=== PATIENT | female | born 1995 | race Asian ===

== ENCOUNTER → 2017-01-17 | Outpatient (CLI) | payer OTHER ==
[~2017-01-17] MED LIST: BCPILLS PO; MULT1PAK6 PO; OPTIRAY 320 IV PRN; PHEN-876 PO; PRT/20 PO; SULF800T23 PO; ZOLP5TAB6 PO
--- NOTE | 2017-01-17 16:43 | DIAGNOSTIC IMAGING REPORT ---
ABDOMEN AND PELVIS CT WITH IV AND ORAL CONTRAST CT DOSE: 250.10 mGy.cm HISTORY: Recent weight loss. 15 pound weight loss in 3 weeks. X TECHNIQUE: Multiaxial CT images of the abdomen and pelvis were performed following the use of intravenous and oral contrast. A dose lowering technique was utilized adhering to the principles of ALARA. COMPARISON STUDY: None. FINDINGS: The lung bases are clear. The liver, spleen, gallbladder, pancreas, left kidney, and adrenal glands are within normal limits. No bowel wall thickening or obstruction. The pelvic organs are unremarkable. No suspicious lytic or blastic osseous lesions. 3 mm hypodense lesion within the right kidney is too small to stress but likely represents a cyst. There is a 4 mm soft tissue nodule within the left lower quadrant omentum seen on image 244. IMPRESSION: 1. No bowel wall thickening or obstruction. 2. No acute abnormality in the abdomen or pelvis. 3. A 4 mm soft tissue nodule within the left lower quadrant omentum. This is of doubtful clinical significance and favors a tortuous vessel or possibly represent a small focus of endometriosis in the appropriate clinical setting. A 3 month abdomen and pelvis CT follow up is recommended to ensure stability. Electronically signed by: Denilson Ledesma M.D. 01/17/2017 4:42 PM Dictated Date/Time: 01/17/2017 4:34 PM
== END | disposition home or self-care (01) ==
LOC: C.CTS 15:37
PROVIDERS: ATTEND Physician Assistant
DX: R63.4 Abnormal weight loss (principal)

== ENCOUNTER 2017-02-04 20:48 | Emergency (ER) | payer OTHER ==
[~2017-02-04] VITALS: Ht 157.5 cm; Wt 47.3 kg
[2017-02-04 21:07] VITALS: Ht 157.5 cm; Wt 47.3 kg
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
[2017-02-04 22:14] VITALS: BP 101/71; PULSE 79; TEMP 36.6; O2SAT 100
== END 2017-02-04 22:15 | disposition home or self-care (01) ==
LOC: C.EDB 20:49 → C.EDD 22:15
DX: J02.9 Acute pharyngitis, unspecified (principal); F31.9 Bipolar disorder, unspecified; F17.210 Nicotine dependence, cigarettes, uncomplicated; Z79.3 Long term (current) use of hormonal contraceptives; Z79.899 Other long term (current) drug therapy

== ENCOUNTER 2017-02-06 14:48 | Emergency (ER) | payer OTHER ==
[~2017-02-06] VITALS: Ht 157.5 cm; Wt 47.1 kg
[2017-02-06 15:04] VITALS: TEMP 36.5; Ht 157.5 cm; Wt 47.1 kg
[2017-02-06] MEDS ORDERED: PHENAZOPYRIDINE HCL 200 MG TAB PO STA (16:05)
[2017-02-06 17:21] LABS: URINE NITRITE POS (NEG); URINE SPECIFIC GRAVITY 1.027 (1.000-1.030); UROBILINOGEN NEG (NEG)
[2017-02-06 17:22] LABS: MANUAL MICROSCOPIC REQUIRED? NO; REVIEW REQ? YES; URINE APPEARANCE CLOUDY (CLEAR); URINE COLOR RED
[2017-02-06 17:28] LABS: URINE BILIRUBIN NEG (NEG)
[2017-02-06 17:33] LABS: URINE EPITHELIAL CELL AUTO 20-30 /lpf (0-5); ZZUR CULT IF INDIC CLEAN CATCH YES
[2017-02-06] MEDS ORDERED: PHEN-876 PO (17:48)
[2017-02-06] MEDS ORDERED: SULF800T23 PO (17:48)
[2017-02-06 17:49] VITALS: BP 116/81; PULSE 106; O2SAT 95
[2017-02-06] MEDS ORDERED: SULFAMETHOXAZOLE/TRIMETHOPRIM DS 800/160MG TAB PO STA (17:49)
[2017-02-06] MEDS ORDERED: MULT1PAK6 PO (21:49)
[2017-02-06] MEDS ORDERED: BCPILLS PO (21:49)
[2017-02-06] MEDS ORDERED: PRT/20 PO (21:49)
[2017-02-06] MEDS ORDERED: ZOLP5TAB6 PO (21:49)
--- NOTE | 2017-02-07 02:16 | EMERGENCY ROOM VISIT NOTE ---
History First contact with patient: 15:53 Chief Complaint: URINARY SYMPTOMS Stated Complaint: BLOOD IN URINE, ABDOMINAL PAIN Nursing Triage Summary: pt states "I am pissing blood" c/o R flank pain, R urethra pain and increased frequency in urination started about 2 hours ago History of Present Illness The patient is a 21 year old female who presents to the Emergency Room with complaints of blood in her urine, dysuria and increased frequency of urine that started approximately 2 hours ago. The patient reports that she was here yesterday and diagnosed with a viral upper respiratory infection. She has persistent cough, but denies any progressively worsening respiratory symptoms. The patient reports that she has had UTIs in the past, but reports that she has never had blood in her urine. Patient denies vaginal bleeding. She thought she may have been 2 weeks ago, and took vitamin C 2000 mg and drank a tea to "prevent the egg from settling." The patient denies any vaginal discharge, diarrhea or constipation. The pain is not radiating into the back. She denies any nausea or vomiting. She rates her urinary discomfort an 8 out of 10. Review of Systems 10 system review was performed and was negative except for pertinent positives and negatives as indicated in history of present illness Past Medical/Surgical History Medical Problems: (1) Bipolar 1 disorder Family History Unremarkable Social History Smoking Status: Current Every Day Smoker Alcohol Use: none Drug Use: other Marital Status: single Housing Status: lives alone Occupation Status: [employer] student Current/Historical Medications Scheduled Control Pills ( Control Pills), 1 TAB PO DAILY Pantoprazole (Protonix), 20 MG PO DAILY Phenazopyridine HCl (Pyridium), 200 MG PO TID Sulfa/Trimethoprim (Bactrim Ds 800MG/160MG), 1 TAB PO BID Scheduled PRN Multiple Vitamins W/ Minerals (Emergen-C Vitamin C), 1 PKT PO DAILY PRN for ILLNESS Zolpidem Tartrate (Zolpidem Tartrate), 5 MG PO HS PRN for Sleep Physical Exam Vital Signs Date Time Temp Pulse Resp B/P (MAP) Pulse Ox O2 Delivery O2 Flow Rate FiO2 02/06/17 17:49 106 18 116/81 95 Room Air 02/06/17 15:04 36.5 119 18 108/63 96 Room Air Physical Exam CONSTITUTIONAL: Healthy and well nourished. Alert and oriented X 3 with positive affect. HEENT: Normocephalic, atraumatic. Pupils equal, round and reactive. Scleral icterus or conjunctival injection. NECK: Full active range of motion without discomfort. RESPIRATORY: Clear to auscultation bilaterally with no wheezing, crackles, rhonchi or stridor. CARDIOVASCULAR: Regular rate and rhythm with no murmurs, rubs or gallops. GASTROINTESTINAL: Bowel sounds present in all quadrants. She has suprapubic tenderness to palpation. Negative McBurney's point tenderness. Negative CVA tenderness. No abdominal rigidity, guarding or rebound. MUSCULOSKELETAL: Full range of motion of all joints without discomfort. INTEGUMENTARY: No rash or other significant dermatologic conditions noted. NEUROLOGIC: No focal neurologic deficits noted. Medical Decision & Procedures Laboratory Results Test 02/06/17 16:48 Urine Color RED Urine Appearance CLOUDY (CLEAR) Urine pH 7.0 (4.5-7.5) Urine Specific [place] 1.027 (1.000-1.030) Urine Protein 4+ (NEG) Urine Glucose (UA) NEG (NEG) Urine Ketones NEG (NEG) Urine Occult Blood 3+ (NEG) Urine Nitrite POS (NEG) Urine Bilirubin NEG (NEG) Urine Urobilinogen NEG (NEG) Urine Leukocyte Esterase SMALL (NEG) Urine WBC (Auto) >30 /hpf (0-5) Urine RBC (Auto) >30 /hpf (0-4) Urine Hyaline Casts (Auto) 1-5 /lpf (0-5) Urine Epithelial Cells (Auto) 20-30 /lpf (0-5) Urine Bacteria (Auto) NEG (NEG) Urine Pathogenic Casts /lpf (0) Urine Test NEG (NEG) Urinalysis is consistent with infection. Urine is negative. Cultures are ordered and pending. Medications Administered Medications (Trade) Dose Ordered Sig/Filiberto Route Start Time Stop Time Status Last Admin Dose Admin Phenazopyridine HCl (Pyridium Tab) 200 mg NOW STAT PO 02/06/17 16:05 02/06/17 16:07 DC 02/06/17 16:42 200 MG Trimethoprim/ Sulfamethoxazole (Septra Ds 800/ 160MG Tab) 1 tab NOW STAT PO 02/06/17 17:49 02/06/17 17:50 DC 02/06/17 18:14 1 TAB ED Course Patient history and physical exam were performed. Nurse's notes were reviewed. Vital signs were reviewed and were normal. The patient is mild tachycardic at 119 bpm in triage. On my examination, pulse was 96. Urinalysis is consistent with UTI. Urine cultures were ordered and are pending. Urine was negative. The patient was dispensed Bactrim DS and Pyridium 200 mg while in the emergency department. She received prescriptions for both Bactrim DS and Pyridium. The patient was instructed to follow-up with her PCP as needed for further UTI management, or management of her upper respiratory infection. The patient was advised that her infection is still likely in the viral phase. She was instructed to return to the emergency department for any developing fever or other concerning symptoms. The patient was happy with plan of care, and voiced understanding of all discharge instructions. Medical Decision Medication Reconcilliation Current Medication List: was personally reviewed by oh Blood Pressure Screening Patient's blood pressure: Normal blood pressure Impression Primary Impression: Urinary tract infection Additional Impression: Upper respiratory infection, viral Departure Information Prescriptions Phenazopyridine HCl (Pyridium) 200 Mg Tab 200 MG PO TID for dysuria, #5 TAB Prov: Raudel Cm PA 02/06/17 Sulfa/Trimethoprim (Bactrim Ds 800MG/160MG) Tab 1 TAB PO BID for 5 Days, #10 TAB Prov: Raudel Cm PA 02/06/17 Referrals [facility] (PCP) Patient Instructions [facility] Problem Qualifiers Primary Impression: Urinary tract infection Urinary tract infection type: acute cystitis Hematuria presence: with hematuria Qualified Codes: N30.01 - Acute cystitis with hematuria
== END 2017-02-06 19:00 | disposition home or self-care (01) ==
LOC: C.EDB 15:06 → C.EDA 19:00
DX: N39.0 Urinary tract infection, site not specified (principal); F31.9 Bipolar disorder, unspecified; F17.210 Nicotine dependence, cigarettes, uncomplicated; Z79.3 Long term (current) use of hormonal contraceptives; Z79.899 Other long term (current) drug therapy; J06.9 Acute upper respiratory infection, unspecified

== ENCOUNTER 2017-02-10 12:59 | Emergency (ER) | payer OTHER ==
[~2017-02-10 12:59] MED LIST changes: -OPTIRAY 320 IV PRN
[2017-02-10] MEDS ORDERED: SODIUM CHLORIDE 0.9% 1000ML 1,000 ML IV STA (13:57)
[2017-02-10 14:46] LABS: MEAN CELL VOLUME 91.1 fL (80-100); MEAN CORPUSCULAR HGB CONC 35.1 g/dl (32-36); MEAN PLATELET VOLUME 10.1 fL (7.4-10.4); PLATELET COUNT 305 K/uL (130-400)
[2017-02-10 14:56] LABS: MANUAL MICROSCOPIC REQUIRED? YES; REVIEW REQ? NO
[2017-02-10 14:57] LABS: SULFASALICYLIC ACID NEG (NEG); URINE APPEARANCE CLEAR (CLEAR); URINE COLOR ORANGE
[2017-02-10 14:58] LABS: URINE SPECIFIC GRAVITY 1.012 (1.000-1.030)
[2017-02-10 14:59] LABS: INR 0.9 (0.9-1.1); PARTIAL THROMBOPLASTIN RATIO 1.1; PROTHROMBIN TIME (PATIENT) 10.1 SECONDS (9.0-12.0)
--- NOTE | 2017-02-10 15:00 | DIAGNOSTIC IMAGING REPORT ---
CHEST ONE VIEW PORTABLE HISTORY: 21 years-old Female Dyspnea, chest pain acute dyspnea and chest pain. COMPARISON: None available. TECHNIQUE: Portable upright AP view of the chest FINDINGS: Cardiomediastinal and hilar silhouettes are within normal limits. No pneumothorax, pleural effusion or focal airspace consolidation. No overt pulmonary edema. There is gentle convex right curvature of the thoracic spine of less than 10 degrees. Bones are grossly intact. IMPRESSION: No acute cardiopulmonary process. The above report was generated using voice recognition software. It may contain grammatical, syntax or spelling errors. Electronically signed by: Daniele Mc M.D. 02/10/2017 2:59 PM Dictated Date/Time: 02/10/2017 2:57 PM
[2017-02-10 15:03] LABS: URINE BACTERIA NEG (NEG); URINE RBC 0-4 /hpf (0-4); URINE WBC 0 /hpf (0-5)
[2017-02-10 15:05] LABS: ZZUR CULT IF INDIC CLEAN CATCH NO
[2017-02-10 15:07] LABS: ALT/SGPT 16 U/L (12-78); BLOOD UREA NITROGEN 8 mg/dl (7-18); C-REACTIVE PROTEIN < 0.29 mg/dl (0-0.29); CALCIUM 9.1 mg/dl (8.5-10.1); CARBON DIOXIDE 22 mmol/L (21-32); CHLORIDE 104 mmol/L (98-107); CREATININE 0.84 mg/dl (0.60-1.20); GLUCOSE 82 mg/dl (70-99); MAGNESIUM 2.5 mg/dl (1.8-2.4); POTASSIUM 3.6 mmol/L (3.5-5.1); SODIUM 135 mmol/L (136-145)
[2017-02-10 15:15] LABS: ALKALINE PHOSPHATASE 60 U/L (45-117); AST/SGOT 15 U/L (15-37); THYROID STIMULATING HORMONE 0.709 uIu/ml (0.300-4.500)
[2017-02-10 15:24] LABS: BASO % 0.5 %; BASO ABS # 0.02 K/uL (0-0.2); COMPLETE YES; EOS % 1.5 %; IG% 0.2 %; LYMPH % 51.2 %; MONO % 8.8 %; NEUT % 37.8 %
--- NOTE | 2017-02-10 15:33 | EMERGENCY ROOM VISIT NOTE ---
History First contact with patient: 13:44 Chief Complaint: ILLNESS Stated Complaint: SOB, BLADDER INFECTION History of Present Illness The patient is a 21 year old female who presents to the Emergency Room via private vehicle with complaints of "shortness of breath, bladder infection". The patient states that she was seen here twice in the recent past, for sore throat, as well as UTI. She is concerned that her antibiotic is not working, but denies any urinary symptoms currently. She now notes bilateral flank pain of which she has had, as well as shortness of breath which developed over the past few days in addition to chest pain. She took her temperature and found it to be 37.7C. She states that she feels very weak as though she is going to pass out. There is associated lightheadedness, chest pain and shortness of breath. She is still coughing, and sneezing but notes not as bad as when she was here in the past. She denies any dysuria. She notes that she thought she was 2 weeks ago, as she was 3 days late for her period. She took 2000 mg of vitamin C, as well as parsley tea to prevent the egg from implanting upon the uterus. She then had her menses, and just finished that today. She did have vaginal bleeding but believes it was her period. She notes no vaginal discharge, and states that she is in monogamous relationship, has been recently tested for STDs as well as her partner and denies chance of STI. Review of Systems A complete 10-point Review of Systems was discussed with the patient, with pertinent positives and negatives listed in the History of Present Illness. All remaining Review of Systems questions can be considered negative unless otherwise specified. Past Medical/Surgical History Medical Problems: (1) Bipolar 1 disorder Family History No pertinent Social History Smoking Status: Current Every Day Smoker Alcohol Use: none Drug Use: other Marital Status: single Housing Status: lives alone Occupation Status: [employer] Current/Historical Medications Scheduled Control Pills ( Control Pills), 1 TAB PO DAILY Pantoprazole (Protonix), 20 MG PO DAILY Phenazopyridine HCl (Pyridium), 200 MG PO TID Sulfa/Trimethoprim (Bactrim Ds 800MG/160MG), 1 TAB PO BID Sulfa/Trimethoprim (Bactrim Ds 800MG/160MG), 1 TAB PO BID Scheduled PRN Multiple Vitamins W/ Minerals (Emergen-C Vitamin C), 1 PKT PO DAILY PRN for ILLNESS Zolpidem Tartrate (Zolpidem Tartrate), 5 MG PO HS PRN for Sleep Physical Exam Vital Signs Date Time Temp Pulse Resp B/P (MAP) Pulse Ox O2 Delivery O2 Flow Rate FiO2 02/10/17 17:44 36.8 65 16 113/68 96 02/10/17 17:03 65 16 113/68 96 Room Air 02/10/17 15:09 61 02/10/17 14:52 74 20 84/51 100 Room Air 02/10/17 13:18 36.8 99 20 101/61 100 Room Air Physical Exam VITAL SIGNS - Vital signs and nursing notes were reviewed. Stable. GENERAL - 21-year-old female appearing her stated age who is in no acute distress. Communicates well with provider and answers questions appropriately. SKIN - Without rashes. Unremarkable. HEAD - NC/AT. EYES - PERRL with EOMI bilaterally. Sclera anicteric. Palpebral conjunctiva pink and moist with no injection noted. EARS - No deformities of external structures noted on gross examination bilaterally. No pain elicited with palpation of the tragus bilaterally. External auditory canals without discharge or otorrhea. Tympanic membranes pearly steward without retraction or bulging. No fluid or purulent material visualized behind the TM. Handle of malleus, umbo, cone of light, pars tensa/ flaccid all easily visualized. NOSE - Midline and without cyanosis. No epistaxis or purulent drainage noted. Septum midline without deviation or septal hematoma noted. MOUTH/OROPHARYNX - Without perioral cyanosis. Buccal mucosa pink and moist and without leukoplakia. Tongue midline with equal elevation of palate bilaterally. No tonsillar hypertrophy, erythema, or exudates noted. Fair dentition noted. NECK - Neck with FROM. Supple to palpation. No lymphadenopathy noted. No nuchal rigidity. LUNGS - Chest wall symmetric without accessory muscle use, intercostals retractions, or central cyanosis. Normal vesicular breath sounds CTA B/L. No wheezes, rales, or rhonchi appreciated. CARDIAC - RRR with S1/S2. No murmur, rubs, or gallops appreciated. ABDOMEN - Abdominal contour normal without pulsations or visible masses. BS normoactive all four quadrants. Bilateral flank tenderness. No palpable masses , hepatosplenomegaly, or ascites noted. EXTREMITIES - No clubbing or peripheral cyanosis. No pretibial edema present. + 5/5 strength noted in UE/LE bilaterally. NEUROLOGIC - Cranial nerves II through XII grossly intact. Sensory intact to light touch throughout. Patellar reflexes +2/4. PSYCH - A&Ox3 and cooperates fully with examiner. Pt is pleasant and interacts well with examiner but does exhibit vulgar language throughout normal conversation. Medical Decision & Procedures ER Provider Diagnostic Interpretation: CHEST ONE VIEW PORTABLE HISTORY: 21 years-old Female Dyspnea, chest pain acute dyspnea and chest pain. COMPARISON: None available. TECHNIQUE: Portable upright AP view of the chest FINDINGS: Cardiomediastinal and hilar silhouettes are within normal limits. No pneumothorax, pleural effusion or focal airspace consolidation. No overt pulmonary edema. There is gentle convex right curvature of the thoracic spine of less than 10 degrees. Bones are grossly intact. IMPRESSION: No acute cardiopulmonary process. The above report was generated using voice recognition software. It may contain grammatical, syntax or spelling errors. Electronically signed by: Daniele Mc M.D. 02/10/2017 2:59 PM Dictated Date/Time: 02/10/2017 2:57 PM RETROPERITONEAL COMPLETE CLINICAL HISTORY: Bilateral flank pain pain TECHNIQUE: Ultrasound COMPARISON STUDY: None FINDINGS: Normal right kidney is 10.0 cm maximum dimension. No evidence for hydronephrosis. Left kidney normal at 9.3 cm. No evidence for hydronephrosis IMPRESSION: Normal study The above report was generated using voice recognition software. It may contain grammatical, syntax or spelling errors. Electronically signed by: Chester Reid M.D. 02/10/2017 4:19 PM Dictated Date/Time: 02/10/2017 4:18 PM Laboratory Results 02/10/17 14:05 Red Blood Count 4.50, Mean Corpuscular Volume 91.1, Mean Corpuscular Hemoglobin 32.0, Mean Corpuscular Hemoglobin Concent 35.1, Mean Platelet Volume 10.1, Neutrophils (%) (Auto) 37.8, Lymphocytes (%) (Auto) 51.2, Monocytes (%) (Auto) 8.8, Eosinophils (%) (Auto) 1.5, Basophils (%) (Auto) 0.5, Neutrophils # (Auto) 1.55, Lymphocytes # (Auto) 2.10, Monocytes # (Auto) 0.36, Eosinophils # (Auto) 0.06, Basophils # (Auto) 0.02 02/10/17 14:05 Test 02/10/17 14:05 02/10/17 14:10 White Blood Count 4.10 K/uL (4.8-10.8) Red Blood Count 4.50 M/uL (4.2-5.4) Hemoglobin 14.4 g/dL (12.0-16.0) Hematocrit 41.0 % (37-47) Mean Corpuscular Volume 91.1 fL (80-100) Mean Corpuscular Hemoglobin 32.0 pg (25-34) Mean Corpuscular Hemoglobin Concent 35.1 g/dl (32-36) Platelet Count 305 K/uL (130-400) Mean Platelet Volume 10.1 fL (7.4-10.4) Neutrophils (%) (Auto) 37.8 % Lymphocytes (%) (Auto) 51.2 % Monocytes (%) (Auto) 8.8 % Eosinophils (%) (Auto) 1.5 % Basophils (%) (Auto) 0.5 % Neutrophils # (Auto) 1.55 K/uL (1.4-6.5) Lymphocytes # (Auto) 2.10 K/uL (1.2-3.4) Monocytes # (Auto) 0.36 K/uL (0.11-0.59) Eosinophils # (Auto) 0.06 K/uL (0-0.5) Basophils # (Auto) 0.02 K/uL (0-0.2) RDW Standard Deviation 41.9 fL (36.4-46.3) RDW Coefficient of Variation 12.5 % (11.5-14.5) Immature Granulocyte % (Auto) 0.2 % Immature Granulocyte # (Auto) 0.01 K/uL (0.00-0.02) Red Blood Cell Morphology Unremarkable Prothrombin Time 10.1 SECONDS (9.0-12.0) Prothromb Time International Ratio 0.9 (0.9-1.1) Activated Partial Thromboplast Time 28.4 SECONDS (21.0-31.0) Partial Thromboplastin Ratio 1.1 D-Dimer < 190 ug/L FEU (0-500) Anion Gap 9.0 mmol/L (3-11) Estimated GFR () 115.1 Estimated GFR (Non- 99.4 BUN/Creatinine Ratio 9.0 (10-20) Calcium Level 9.1 mg/dl (8.5-10.1) Magnesium Level 2.5 mg/dl (1.8-2.4) Total Bilirubin 0.4 mg/dl (0.2-1) Aspartate Amino Transf (AST/SGOT) 15 U/L (15-37) Alanine Aminotransferase (ALT/SGPT) 16 U/L (12-78) Alkaline Phosphatase 60 U/L (45-117) Total Creatine Kinase 72 U/L (26-192) Creatine Kinase MB < 0.5 ng/ml (0.5-3.6) Creatine Kinase MB Ratio (0-3.0) Troponin I < 0.015 ng/ml (0-0.045) C-Reactive Protein < 0.29 mg/dl (0-0.29) Total Protein 7.6 gm/dl (6.4-8.2) Albumin 3.8 gm/dl (3.4-5.0) Globulin 3.8 gm/dl (2.5-4.0) Albumin/Globulin Ratio 1.0 (0.9-2) Thyroid Stimulating Hormone (TSH) 0.709 uIu/ml (0.300-4.500) Human Chorionic Gonadotropin, Qual NEG (NEG) Urine Color ORANGE Urine Appearance CLEAR (CLEAR) Urine pH (4.5-7.5) Urine Specific [place] 1.012 (1.000-1.030) Urine Protein NEG (NEG) Urine Glucose (UA) (NEG) Urine Ketones (NEG) Urine Occult Blood (NEG) Urine Nitrite (NEG) Urine Bilirubin (NEG) Urine Urobilinogen (NEG) Urine Leukocyte Esterase (NEG) Urine RBC 0-4 /hpf (0-4) Urine WBC 0 /hpf (0-5) Urine Epithelial Cells 0-5 /lpf (0-5) Urine Bacteria NEG (NEG) Medications Administered Medications (Trade) Dose Ordered Sig/Filiberto Route Start Time Stop Time Status Last Admin Dose Admin Sodium Chloride 1,000 ml @ 999 mls/hr Q1H1M STAT IV 02/10/17 13:57 02/10/17 14:57 DC 02/10/17 14:32 999 MLS/HR Medical Decision Patient was seen and evaluated as above. Previous visits were extensively reviewed. She presents to us today with chest pain, shortness of breath, lethargy, flank pain, and concern that the antibiotic is not working. She also has lightheadedness. Her vital signs upon arrival are normal. She is afebrile , normotensive, heart rate is slightly high at 99, but is saturating well on room air 100%. She is nontoxic on my exam. CBC revealed white count slightly low at 4.10, I suspect this is likely secondary to viral etiology. Patient's coagulation studies are negative, and the d-dimer is low/ WNL. Her bedside EKG reveals normal sinus rhythm, and I believe that she at this time is a low risk for pulmonary embolism. She is saturating at 100%. Metabolic workup reveal sodium slightly low at 135, she was bolused with 1 liter of normal saline here. Magnesium is slightly high at 2.5. No evidence of kidney or liver failure. Troponin is negative. C-reactive protein is normal. HCG test is negative. Urine is orange, therefore blood and nitrates were mildly visualized , but there are no red blood cells, white blood cells or epithelial cells. No urine bacteria. I suspect that the Bactrim is working for her UTI. Previous urine culture is non diagnostic. Clinically she does have flank pain, therefore my concern is that she may have pyelonephritis, therefore will obtain an ultrasound. This was normal. I do no believe that a CT of the abd/pelvis is reasonable at this time. Chest x-ray was also negative for pneumonia. I suspect she has a viral URI, as well as potential early pyelonephritis despite normal vitals, and blood work. I will extend her Bactrim from 5 days to 14 days. She is to continue this as one tab by mouth twice a day. She was educated upon this. She appears stable for outpatient management. She is to follow-up with [facility] regarding her visit here today later in the week for recheck, or return here if worsening. She does not appear to be septic and ambulates out of the ED without difficulty. In evaluation treatment this patient following differential diagnoses were entertained: Sepsis, [place], PE, viral URI, UTI, pyelonephritis, among others. Impression Primary Impression: Upper respiratory infection, viral Additional Impressions: Urinary tract infection Pyelonephritis Departure Information Dispostion Home / Self-Care Condition GOOD Prescriptions Sulfa/Trimethoprim (Bactrim Ds 800MG/160MG) Tab 1 TAB PO BID for 9 Days, #18 TAB Prov: Kartik Araya PA-C 02/10/17 Referrals [facility] (PCP) Patient Instructions My [facility] Additional Instructions You have been treated in the Emergency Department for a Urinary Tract Infection (UTI) and upper respiratory infection.. I believe that your cough is coming from likely a virus that is known is a cold in the chest. Unfortunately there are no antibiotics that will help with this. This may take weeks to clear. Please stay well hydrated. In regard to the urinary tract infection that may be near the kidney area, I recommended continuing the Bactrim. You have been given a 5 day supply previously, and I will extend this 9 more days to make 14 days. Remember this is one tablet every 12 hours until the antibiotic is gone. Stop this medication and contact a medical provider if you were to develop any significant adverse side effects including: wheezing, shortness of breath, passing out, vomiting, or a diffuse rash. Always take antibiotics as directed and COMPLETE the ENTIRE course regardless of the improvement of your symptoms. For pain control, you can use the following [id number] medicines (if >12 yo) if you are able to do so.: - Regular strength (325mg/tab) Tylenol (acetaminophen) 2 tabs every 4-6 hours as needed. Do not exceed 12 tablets in a 24 hour period. Avoid taking more than 3 grams (3000 mg) of Tylenol per day. This includes any other sources of acetaminophen you may take on a regular basis. - Regular strength (200 mg/tab) Advil (ibuprofen) 1-2 tabs every 4-6 hours as needed. Do not exceed a dose of 3200 mg per day. Please be careful with her gastritis. Return to the emergency department if your symptoms worsen despite treatment course outlined above. Drink plenty of water and stay well hydrated. As with any trip to the Emergency Department, you should follow-up with your Primary Care Provider from today's visit. Please follow-up with [facility] later in the week for recheck of your current condition. Return to the emergency department if your symptoms persist despite treatment plan outlined above or if the following symptoms occur: increased fevers, worsening chills, worsening low back pain/side pain, nausea/vomiting, or blood in your urine.. Please return with any new/concerning symptoms. Thank you for your time. Problem Qualifiers
--- NOTE | 2017-02-10 16:21 | DIAGNOSTIC IMAGING REPORT ---
RETROPERITONEAL COMPLETE CLINICAL HISTORY: Bilateral flank pain pain TECHNIQUE: Ultrasound COMPARISON STUDY: None FINDINGS: Normal right kidney is 10.0 cm maximum dimension. No evidence for hydronephrosis. Left kidney normal at 9.3 cm. No evidence for hydronephrosis IMPRESSION: Normal study The above report was generated using voice recognition software. It may contain grammatical, syntax or spelling errors. Electronically signed by: Chester Reid M.D. 02/10/2017 4:19 PM Dictated Date/Time: 02/10/2017 4:18 PM
[2017-02-10 17:16] LABS: PREG INTERNAL NEGATIVE QC NEG CLEAR BACKGROUND; PREG INTERNAL POSITIVE QC POS CONTROL LINE
[2017-02-10] MEDS ORDERED: SULF800T23 PO (17:20)
[2017-02-10] MEDS ORDERED: CIPROFLOXACIN 500 MG TAB ONE (17:31)
[2017-02-10 17:44] VITALS: BP 113/68; PULSE 65; TEMP 36.8; O2SAT 96
--- NOTE | 2017-02-12 12:41 | Pharmacy Progress Note ---
ED Pharmacist Culture FollowUp Date of Service: Feb 12, 2017. Patient called asking if her antibiotic was still appropriate. She was discharged on bactrim for UTI. Her last urine culture was on 02/06 with no specific organism identified. As there was no new information I informed her to continue her antibiotics as prescribed and seek to follow up if symptoms worsen.
== END 2017-02-10 17:45 | disposition home or self-care (01) ==
LOC: C.EDB 13:00
DX: J06.9 Acute upper respiratory infection, unspecified (principal); N39.0 Urinary tract infection, site not specified; N12 Tubulo-interstitial nephritis, not specified as acute or chronic; F17.200 Nicotine dependence, unspecified, uncomplicated; F31.9 Bipolar disorder, unspecified; Z79.3 Long term (current) use of hormonal contraceptives

== ENCOUNTER → 2017-02-13 | Outpatient (CLI) | payer OTHER ==
[2017-02-13 15:02] LABS: ALT/SGPT 20 U/L (12-78); AST/SGOT 13 U/L (15-37); BLOOD UREA NITROGEN 9 mg/dl (7-18); BUN/CREATININE RATIO 10.6 (10-20); CALCIUM 9.4 mg/dl (8.5-10.1); CARBON DIOXIDE 26 mmol/L (21-32); CHLORIDE 105 mmol/L (98-107); CREATININE 0.87 mg/dl (0.60-1.20); GLUCOSE 77 mg/dl (70-99); POTASSIUM 4.4 mmol/L (3.5-5.1); SODIUM 138 mmol/L (136-145)
[2017-02-13 15:05] LABS: ALKALINE PHOSPHATASE 73 U/L (45-117)
[2017-02-13 18:47] LABS: URINE APPEARANCE TURBID (CLEAR); URINE BILIRUBIN NEG (NEG); URINE COLOR DK YELLOW; URINE NITRITE NEG (NEG); URINE SPECIFIC GRAVITY 1.025 (1.000-1.030); UROBILINOGEN NEG (NEG)
[2017-02-13 18:48] LABS: MANUAL MICROSCOPIC REQUIRED? NO; REVIEW REQ? YES
[2017-02-18 17:37] LABS: IGA SERUM 288 mg/dL (81-463); TIS TRANS IGA 1 U/mL (<4)
== END | disposition home or self-care (01) ==
LOC: C.LAB1850 13:46
PROVIDERS: ATTEND Physician Assistant
DX: R63.4 Abnormal weight loss (principal); R10.13 Epigastric pain